=== PATIENT | male | born 1965 | race Caucasian/White ===

== ENCOUNTER 2020-04-21 11:31 | Emergency (ER) | payer OTHER ==
[~2020-04-21] VITALS: Ht 193 cm; Wt 88.6 kg
[~2020-04-21 11:31] MED LIST: FLAGYL500 MG PO; LEVAQUIN 5500 MG/TA1 PO; NORCO 325 MG-51 TAB PO
[2020-04-21 13:20] VITALS: TEMP 98
[2020-04-21 14:19] VITALS: BP 131/77; PULSE 60
== END 2020-04-21 14:30 | disposition home or self-care (01) ==
LOC: COL.ER 11:31
DX: Z20.3 Contact with and (suspected) exposure to rabies (principal)

== ENCOUNTER 2020-05-05 11:25 | Outpatient (RCR) | payer BC ==
[2020-05-05 11:39] VITALS: BP 118/81; PULSE 95; TEMP 98.7
== END 2020-07-23 | disposition home or self-care (01) ==
LOC: EUO
DX: Z20.3 Contact with and (suspected) exposure to rabies (principal)